=== PATIENT | female | born 1965 | race African-American/Black ===

== ENCOUNTER 2025-07-31 20:29 | Emergency (ER) | payer MEDICAID ==
[~2025-07-31] VITALS: Ht 170.2 cm; Wt 92.0 kg
[2025-07-31 20:48] VITALS: O2SAT 100
[2025-07-31 22:27] LABS: *AMPHETAMINES SCREEN URINE NEGATIVE (NEGATIVE); *BARBITURATES SCREEN URINE NEGATIVE (NEGATIVE); *BENZODIAZEPINES SCREEN URINE NEGATIVE (NEGATIVE); *COCAINE SCREEN URINE NEGATIVE (NEGATIVE); METHADONE URINE SCREEN NEGATIVE (NEGATIVE)
[2025-07-31 22:28] LABS: CANNABINOID URINE SCREEN NEGATIVE (NEGATIVE); ECSTASY MDMA SCREEN URINE NEGATIVE (NEGATIVE); OPIATES URINE SCREEN NEGATIVE (NEGATIVE); PHENCYCLIDINE URINE SCREEN NEGATIVE (NEGATIVE)
[2025-07-31] MEDS: HALOPERIDOL LACTATE 5MG/ML VIAL IM ONE (22:45)
[2025-07-31] MEDS: DIPHENHYDRAMINE 50MG/ML VIAL IM ONE (22:46)
[2025-07-31] MEDS: LORAZEPAM 2MG/ML UD SYRINGE IM SCH (22:48)
[2025-08-01 00:41] LABS: BASOPHILS % 0.6 % (0.0-2.0); EOSINOPHILS % 1.5 % (0.0-5.0); HEMATOCRIT. 36.0 % (36.0-48.0); HEMOGLOBIN. 11.4 g/dL (12.0-16.0); LYMPHOCYTES % 43.7 % (20.0-50.0); MEAN PLATELET VOLUME 8.3 fl (7.4-10.4); MONOCYTES % 7.3 % (2.0-8.0); NEUTROPHILS % 46.9 % (40.0-76.0); PLATELET 287 x1000/uL (130-400); RED BLOOD CELL COUNT 4.07 mill/uL (4.2-5.4); RED CELL DISTRIBUTION WIDTH 14.9 % (11.6-14.6)
[2025-08-01 01:07] LABS: CREATININE 0.8 mg/dL (0.6-1.0); UREA NITROGEN BLOOD 16 mg/dL (9-23)
[2025-08-01] MEDS: AMLODIPINE 10MG TABLET PO ONE (12:45)
[2025-08-01 12:48] VITALS: BP 169/90; PULSE 104; RESP 20; TEMP 36.7; O2SAT 99
== END 2025-08-01 13:00 ==
LOC: ER 20:29
DX: R45.851 Suicidal ideations (principal); F23 Brief psychotic disorder; Z79.899 Other long term (current) drug therapy; Z20.822 Contact with and (suspected) exposure to COVID-19
CPT/HCPCS: 80305; 36415; 96372; 99285; 87426; 80048; 80307; 80329; 80320; 85025; J1200; J1630; J2060; G0480